=== PATIENT | male | born 1955 | race Caucasian/White ===

== ENCOUNTER 2017-02-08 06:31 | Day surgery (SDC) | payer BC ==
--- NOTE | ~2017-02-08 | EGD ---
EGD REPORT [facility] [address] [address] NAME: ZANDER AVILA : [birth year] [place]US : [place] [facility] [place] [id number] AGE: 61 ADM/REG DATE : 02/08/17 MR#: [id number] REPORT SERV DATE: 02/08/17 DICTATED BY: DATE: REPORT STATUS : Draft TRANSCRIBED BY: [employer] DATE: 02/08/17 [facility] Patient Name: Zander Avila Date of : 1955 Attending MD: HALLE ZAVALA MD Procedure Date No Time: 02/08/2017 Procedure: Colonoscopy Indications: High risk colon cancer surveillance: Personal history of colonic polyps (path unknown), recent history change in bowel habits Referring MD: MORALES PALOMARES MD Medicines: Monitored Anesthesia Care Complications: No immediate complications. Procedure: Pre-Anesthesia Assessment: - ASA Grade Assessment: III - A patient with severe systemic disease. After I obtained informed consent, the scope was passed under direct vision. Throughout the procedure, the patient's blood pressure, pulse, and oxygen saturations were monitored continuously. The PCF [id number] was introduced through the anus and advanced to the cecum, identified by appendiceal orifice and ileocecal valve. The colonoscopy was performed without difficulty. The patient tolerated the procedure well. The quality of the bowel preparation was excellent. Findings: The perianal and digital rectal examinations were normal. A sessile polyp was found in the transverse colon. The polyp was diminutive in size. The polyp was removed with a cold biopsy forceps. Resection and retrieval were complete. No other significant abnormalities were identified in a careful examination of the remainder of the colon. There is no endoscopic evidence of erythema, mass, ulcerations or angioectasia in the entire colon. No additional abnormalities were found on retroflexion. Biopsies were taken with a cold forceps from the entire colon for evaluation of microscopic colitis. Impression: - One diminutive polyp in the transverse colon. Resected and retrieved. Recommendation: - Patient has a contact number available for emergencies. The signs and symptoms of potential delayed complications were discussed with the patient. Return to EGD REPORT [address] [address] NAME: ZANDER AVILA : [birth year] STATUS : REG [facility]#: [id number] AGE: 61 ADM/REG DATE : 02/08/17 MR#: [id number] REPORT SERV DATE: 02/08/17 DICTATED BY: DATE: REPORT STATUS : Draft TRANSCRIBED BY: [employer] DATE: 02/08/17 normal activities tomorrow. Written discharge instructions were provided to the patient. - Regular diet. - Discharge patient to home. - Continue present medications. - Await pathology results. - Repeat colonoscopy in 5 years for surveillance based on pathology results. - Obtain previous colonosocpy reports and reports on polyp pathology to better determine surveillance interval. - Return to my office in 2 months. Procedure Code(s): --- Professional --- 93098, Colonoscopy, flexible, proximal to splenic flexure; with biopsy, single or multiple Diagnosis Code(s): --- Professional --- D12.3, Benign neoplasm of transverse colon Z86.010, Personal history of colonic polyps CPT copyright 2013 [employer]. All rights reserved. The codes documented in this report are preliminary and upon typing element machine operator review may be revised to meet current compliance requirements. HALLE ZAVALA MD 02/08/2017 7:59 AM This report has been signed electronically. Number of Addenda: 0 Note Initiated On: 02/08/2017 7:17 AM Scope Withdrawal Time 0 hours 8 minutes 48 seconds [address] [address]
--- NOTE | ~2017-02-08 | EGD ---
EGD REPORT [facility] [address] [address] NAME: ZANDER AVILA : 53 [place] : [place] [facility] [place] [id number] AGE: 61 ADM/REG DATE : 02/08/17 MR#: [id number] REPORT SERV DATE: 02/08/17 DICTATED BY: DATE: REPORT STATUS : Draft TRANSCRIBED BY: [employer] DATE: 02/08/17 [facility] Patient Name: Zander Avila Date of : 1955 Attending MD: HALLE ZAVALA MD Procedure Date No Time: 02/08/2017 Procedure: Upper GI endoscopy Indications: Abdominal pain in the right upper quadrant, Diarrhea Referring MD: MORALES PALOMARES MD Medicines: Monitored Anesthesia Care Complications: No immediate complications. Procedure: Pre-Anesthesia Assessment: - ASA Grade Assessment: III - A patient with severe systemic disease. After obtaining informed consent, the endoscope was passed under direct vision. Throughout the procedure, the patient's blood pressure, pulse, and oxygen saturations were monitored continuously. The GIF H190 [id number] was introduced through the mouth, and advanced to the second part of duodenum. The upper GI endoscopy was accomplished without difficulty. The patient tolerated the procedure well. Findings: A widely patent Schatzki ring (acquired) was found at the gastroesophageal junction. No other significant abnormalities were identified in a careful examination of the esophagus. There is no endoscopic evidence of Bloom's esophagus, areas of erosion, hiatus hernia, ulcerations or varices in the entire esophagus. A single small sessile polyp with no stigmata of recent bleeding was found on the greater curvature of the stomach. The polyp was removed with a cold biopsy forceps. Resection and retrieval were complete. No other significant abnormalities were identified in a careful examination of the stomach. There is no endoscopic evidence of mucosal abnormalities, ulceration or varices in the entire examined stomach. The examined duodenum was normal. Biopsies were taken with a cold forceps for histology. There is no endoscopic evidence of inflammation, mucosal abnormalities, stenosis, ulceration or diverticula in the entire examined duodenum. The cardia and gastric fundus were normal on retroflexion. Impression: - Widely patent Schatzki ring. - A single gastric polyp. Resected and retrieved. EGD REPORT [address] [address] NAME: ZANDER AVILA : [birth year] STATUS : REG [facility]#: [id number] AGE: 61 ADM/REG DATE : 02/08/17 MR#: [id number] REPORT SERV DATE: 02/08/17 DICTATED BY: DATE: REPORT STATUS : Draft TRANSCRIBED BY: [employer] DATE: 02/08/17 - Normal examined duodenum. Biopsied. Recommendation: - Patient has a contact number available for emergencies. The signs and symptoms of potential delayed complications were discussed with the patient. Return to normal activities tomorrow. Written discharge instructions were provided to the patient. - Regular diet. - Discharge patient to home. - Continue present medications. - Await pathology results. Procedure Code(s): --- Professional --- 83469, Esophagogastroduodenoscopy, flexible, transoral; with biopsy, single or multiple Diagnosis Code(s): --- Professional --- K22.2, Esophageal obstruction K31.7, Polyp of stomach and duodenum R10.11, Right upper quadrant pain R19.7, Diarrhea, unspecified CPT copyright 2013 [employer]. All rights reserved. The codes documented in this report are preliminary and upon rug cutter helper review may be revised to meet current compliance requirements. HALLE ZAVALA MD 02/08/2017 7:30 AM This report has been signed electronically. Number of Addenda: 0 Note Initiated On: 02/08/2017 7:20 AM Scope Withdrawal Time 0 hours 0 minutes 0 seconds [address] [address]
[~2017-02-08 06:31] MED LIST: ACCU20 PO; ACCUPRIL40 MG PO; ADVIL PO; ALLEGRA180 PO; ASAB PO; AUG875 PO; BACDS PO; CELEXA20 PO; DIL2TAB PO; DIPHENCR TOP; FISH OIL1200 MG PO; HALF81 PO; IBU800 PO; KLOR-CON M2020 MEQ PO; METHOC750B PO; MICROZIDE PO; NORV5 PO; P10 PO; PERCOCET1 TA4 PO; PRILO PO; RITUXAN IV; VITAMIN D31000 UNIT PO
== END 2017-02-08 23:59 | disposition home health service (06) ==
LOC: DMU 06:31
PROVIDERS: Internal Medicine Gastroenterology
PROC: 0DB68ZX Excision of Stomach, Via Natural or Artificial Opening Endoscopic, Diagnostic (ICD-10-PCS; principal; 2017-02-08 08:00)
PROC: 0DBL8ZX Excision of Transverse Colon, Via Natural or Artificial Opening Endoscopic, Diagnostic (ICD-10-PCS; 2017-02-08 08:00)
DX: Z12.11 Encounter for screening for malignant neoplasm of colon (principal); D12.3 Benign neoplasm of transverse colon; K31.7 Polyp of stomach and duodenum; K22.2 Esophageal obstruction; K21.9 Gastro-esophageal reflux disease without esophagitis; I10 Essential (primary) hypertension; F32.9 Major depressive disorder, single episode, unspecified; D70.9 Neutropenia, unspecified; Z86.010 Personal history of colon polyps; Z98.890 Other specified postprocedural states; Z88.2 Allergy status to sulfonamides; Z90.49 Acquired absence of other specified parts of digestive tract; Z88.5 Allergy status to narcotic agent; Z79.82 Long term (current) use of aspirin; Z79.899 Other long term (current) drug therapy
CPT/HCPCS: 88305